=== PATIENT | male | born 1995 | race Caucasian/White ===

== ENCOUNTER 2018-11-18 08:53 | Emergency (ER) | payer OTHER ==
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
[2018-11-18 11:26] VITALS: BP 113/62
== END 2018-11-18 11:56 | disposition home or self-care (01) ==
LOC: ED 08:53
DX: S63.501A Unspecified sprain of right wrist, initial encounter (principal); S80.02XA Contusion of left knee, initial encounter; S80.01XA Contusion of right knee, initial encounter; M25.511 Pain in right shoulder; M54.5 Low back pain; W17.89XA Other fall from one level to another, initial encounter; Y93.89 Activity, other specified; Y92.138 Other place on military base as the place of occurrence of the external cause; Y99.0 Civilian activity done for income or pay; Z87.891 Personal history of nicotine dependence
CPT/HCPCS: 72100; 99283